=== PATIENT | female | born 1960 | race Caucasian/White ===

== ENCOUNTER 2016-07-02 07:57 | Emergency (ER) | payer MEDICAID ==
[2016-07-02 08:05] VITALS: RESP 16; TEMP 97.9
--- NOTE | 2016-07-02 09:37 | DX ---
Sacrum and coccyx 3 views History: Slipped on ice, fall, tailbone pain. Comparison: None available. Findings: No displaced fracture is identified. Prominent bridging osteophytes are noted in the left s acroiliac joint. Mild degenerative change is present in the visualized lumbar spine. Alignment of the hips is normal. Bowel gas pattern is normal. Impression: No acute osseous findings. If pain persists and clinical special warrants, consider CT or MRI.
--- NOTE | 2016-07-02 09:38 | EDPHY ---
H & P Stated Complaint: Fall yesterday and tailbone pain today - Personal History LMP (Females 10-55): Post Menopausal Current Tetanus/Diphtheria Vaccine: Yes Current Tetanus Diphtheria and Acellular Pertussis (TDAP): Yes - Medical/Surgical History Hx Asthma: Yes Hx Chronic Respiratory Disease: No Hx Diabetes: No Hx Cardiac Disease: No Hx Renal Disease: No Hx Cirrhosis: No Hx Alcoholism: No Hx HIV/AIDS: No Hx Splenectomy or Spleen Trauma: No Other PMH: asthma/neck problems - Social History Smoking Status: Former smoker HPI/ROS: CHIEF COMPLAINT: Tailbone pain, fall HISTORY OF PRESENT ILLNESS: walking outside her home yesterday when she slipped in the rain, landing on her tailbone. She notices sudden onset of severe pain in the tailbone. It radiates down the left leg. There is no mid back pain. No anesthesia, incontinence or retention of bowel or bladder. Pain is moderate to severe. Worse with any palpation or movement. No position of comfort. There was no head injury. No loss of conscious. No chest or back pain. No abdominal pain. No injuries to the limbs. No blood thinners. Took 5 ibuprofen this morning. No other associated complaints or modifying factors past REVIEW OF SYSTEMS: Ten systems reviewed and are negative unless otherwise noted in the HPI EXAMINATION General Appearance: Alert, no distress Head: normocephalic, atraumatic Eyes: Pupils equal and round, no conjunctival pallor or injection ENT, Mouth: Mucous membranes moist Neck: Normal inspection, supple, non-tender Respiratory: Lungs are clear to auscultation Cardiovascular: Regular rate and rhythm Gastrointestinal: Abdomen is soft and nontender Back: no tenderness of the cervical, thoracic or lumbar vertebrae. There is tenderness over the coccyx. No step-offs. Neurological: A&O, nonfocal, normal gait Skin: Warm and dry, no rash Extremities: Nontender, no pedal edema Psychiatric: Mood and affect normal MDM: Mechanical fall with tailbone pain. X-rays ordered and pending at this time. She is in no acute distress. There is no evidence of acute cord injury. No head injury. 09:47 Mechanical fall with blunt trauma to the Tailbone. There is no apparent fracture on x-ray. She is neurovascular intact without any midline back tenderness. There is mild paresthesias of the leg, but no anesthesia or no saddle anesthesia discharged home with pain medication, ice, soft foam donut. ED precautions as discussed. Patient is comfortable this plan and leaves in no acute distress. SUPERVISION: This patient was independently evaluated without the aide of supervising physician. (Godwin Mcgraw) Constitutional: Initial Vital Signs Temperature (C) 36.6 C 07/02/16 08:01 Heart Rate 64 07/02/16 08:01 Respiratory Rate 16 07/02/16 08:01 Blood Pressure 111/74 07/02/16 08:01 O2 Sat (%) 95 07/02/16 08:01 O2 Delivery Mode Room Air Allergies/Adverse Reactions: codeine Allergy (Verified 07/02/16 08:00) egg Allergy (Verified 07/02/16 08:05) hydrocodone Allergy (Verified 07/02/16 08:00) oxycodone Allergy (Verified 07/02/16 08:00) Sulfa (Sulfonamide Antibiotics) Allergy (Verified 03/29/15 09:57) Home Medications: Medication Instructions Recorded Albuterol [Ventolin Hfa] 1 - 2 puffs IH BID 11/16/10 Fluticasone/Salmeter 100/50Mcg 11/16/10 [Advair 100/50] Fluticasone Furoate 07/02/16 traMADol [Ultram 50 mg (*)] 50 mg PO Q4 PRN #15 tab 07/02/16 Medical Decision Making Other Provider: The patient was evaluated and managed by the physician senior administrative assistant. I have reviewed this chart and I agree with the findings and plan of care as documented , as indicated by my signature. I am the secondary supervising physician. ( Ella Lizama) Departure - Departure Disposition: Home, Routine, Self-Care Clinical Impression: Fall, Blunt trauma, Tailbone injury Condition: Good Instructions: Coccyx Injury (ED) Additional Instructions: ice, soft foam donut, pain medications as prescribed as needed. Recommend follow up with primary care physician for definitive care. Emergency department precautions as discussed. Referrals: Indiana Damon PA [Primary Care Provider] - As per Instructions Prescriptions: traMADol [Ultram 50 mg (*)] 50 mg PO Q4 PRN #15 tab PRN Reason: Pain, Moderate
[2016-07-02 10:05] VITALS: BP 101/71; PULSE 66; O2SAT 93
== END 2016-07-02 10:04 | disposition home or self-care (01) ==
DX: S39.92XA Unspecified injury of lower back, initial encounter (principal); J45.909 Unspecified asthma, uncomplicated; Z87.891 Personal history of nicotine dependence; W01.0XXA Fall on same level from slipping, tripping and stumbling without subsequent striking against object, initial encounter

== ENCOUNTER → 2016-07-15 | Outpatient (CLI) | payer MEDICAID ==
--- NOTE | 2016-07-15 14:29 | US ---
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 Findings: Gallbladder: Gallbladder 5 mm nonshadowing adherent polyp. No shadowing calculi, wall thickening, or pericholecystic fluid. Common bile duct is 5 mm in diameter which is normal. Liver: Homogeneous in echogenicity without definite focal lesions and measures 14 cm in length. Renal: Right kidney measures 10.5 x 6 x 5 cm without hydronephrosis. Pancreas: Homogeneous without peripancreatic fluid. Aorta: Visualized upper abdominal aorta demonstrates no aneurysm. Impression: 1. Gallbladder polyp measuring 5 mm. 2. No cholelithiasis or biliary ductal dilation. 3. Homogeneous liver without hepatomegaly or masses.
== END ==
LOC: FIMAGING 10:20
PROVIDERS: ATTEND Internal Medicine
DX: K82.4 Cholesterolosis of gallbladder (principal); B18.2 Chronic viral hepatitis C

== ENCOUNTER → 2016-07-22 | Outpatient (CLI) | payer MEDICAID ==
--- NOTE | 2016-07-22 13:04 | MA ---
Screening Digital Mammogram With iCAD Analysis Clinical Indications: Routine screening. Technique: Standard cephalocaudal projections are obtained. Digital breast tomosynthesis was performe d in the MLO projection with reconstruction at 1.0 mm slice thickness and composite MLO views reconst ructed. This examination is processed by the iCAD computer aided detection system. Comparison: June 2014 Breast density: Type B; Scattered fibroglandular densities. Findings: CAD was reviewed. No masses, suspicious calcifications or secondary signs of malignancy are seen. There has been no significant change in the appearance of either breast. Impression: Negative mammogram. BI-RADS 1. Recommendation: Routine mammographic screening in one year as long as physical [facility]ativ [facility] Negative mammography should not preclude additional workup of a clinically suspicious finding. The patient's information is entered into a reminder system with a target due date for her next mammo gram.
== END ==
LOC: FIMAGING 11:52
PROVIDERS: ATTEND Physician Assistant
DX: Z12.31 Encounter for screening mammogram for malignant neoplasm of breast (principal)
CPT/HCPCS: G0202

== ENCOUNTER → 2017-09-19 | Outpatient (CLI) | payer MEDICAID | LOC: FIMAGING 12:16 | PROVIDERS: ATTEND Physician Assistant | DX: Z12.31 Encounter for screening mammogram for malignant neoplasm of breast (principal) ==

== ENCOUNTER → 2017-10-02 | Outpatient (CLI) | payer MEDICAID | LOC: FIMAGING 09:31 | PROVIDERS: ATTEND Physician Assistant | DX: K82.4 Cholesterolosis of gallbladder (principal) ==